=== PATIENT | male | born 1945 | race American Indian/Alaskan Native ===

== ENCOUNTER 2017-12-28 10:27 | Outpatient (CLI) | payer MEDICARE ==
--- NOTE | 2018-01-04 18:26 | Magnetic Resonance Report ---
MR scan of the cranium was performed without contrast. Pulse sequences included: 1. T1 weighted sagittal and axial images without contrast 2. T2 weighted axial and coronal images 3. FLAIR axial images 4. Diffusion-weighted axial images 5. Apparent diffusion coefficient images Views of the posterior fossa showed a normal craniocervical junction. Cerebellar pontine angles were normal with normal seventh-eighth nerve complexes. Brainstem shoed an area of increased signal in the right basis pontis with decreased flow to this region. Cerebellum was normal. The ventricular system showed mild dilatation but no distortion. Images of the hemispheres showed white matter changes in the adler radiata consistent with araiosis. Slightly enlarged Sylvian fissures were present. Atrophy was seen in the temporal, parietal and frontal lobes Flow voids in the [place] of [place], orbits, pituitary and basal ganglia were normal. A small maxillary sinus mucus retention cyst was present. Impression: Abnormal MR scan of the cranium without contrast. a. 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 atrophy of the temporal, parietal and frontal lobes d. small right maxillary sinus mucus retention cyst
== END 2017-12-28 10:28 | disposition home or self-care (01) ==
LOC: MRI 10:27
PROVIDERS: ATTEND Specialist
DX: I63.8 Other cerebral infarction (principal); G31.89 Other specified degenerative diseases of nervous system; J34.1 Cyst and mucocele of nose and nasal sinus; R47.01 Aphasia
CPT/HCPCS: 70551